=== PATIENT | male | born 1995 | race Caucasian/White ===

== ENCOUNTER 2017-01-08 19:05 | Emergency (ER) | payer OTHER ==
[~2017-01-08] VITALS: Ht 177.8 cm; Wt 59.9 kg
[~2017-01-08 19:05] MED LIST: OXCA300T PO
[2017-01-08 19:16] VITALS: TEMP 36.7; Ht 177.8 cm; Wt 59.9 kg
[2017-01-08] MEDS ORDERED: GELATIN SPONGE 12-7MM EXT ONE (19:30)
[2017-01-08] MEDS ORDERED: LACO200T PO (19:35)
[2017-01-08] MEDS ORDERED: OXCA600T3 PO (19:35)
[2017-01-08] MEDS ORDERED: OXCA300T4 PO (19:35)
--- NOTE | 2017-01-08 20:00 | EMERGENCY ROOM VISIT NOTE ---
ED Visit Note First contact with patient: 19:28 CHIEF COMPLAINT: Finger laceration HISTORY OF PRESENT ILLNESS: This 21-year-old male patient presents to the emergency department with his brother after cutting the tip of his left second finger. Patient states he was peeling potatoes when he sliced the end of his finger about one hour ago. The bleeding has not stopped. Denies weakness or numbness of the finger. The patient rates the pain as throbbing and 3/10. The patient denies any other injuries. The patient's Tetanus shot is up to date. He is right-hand dominant. REVIEW OF SYSTEMS: A 6 system review of systems was completed with positives and pertinent negatives listed in the HPI. ALLERGIES: See chart MEDICATIONS: See chart PMH: See chart SOCIAL HISTORY: See chart PHYSICAL EXAM: Vital Signs: Reviewed Nurse's notes, vital signs stable. GENERAL : Pleasant and cooperative, in no acute distress, well-developed, well- nourished. SKIN: There is a 1.5 x 0.5 cm long avulsion laceration on the volar aspect of the left second fingertip. There is no foreign material in the wound and it looks clean. There is moderate bleeding. No deep structures such as tendons, bones, or significant blood vessels are seen in the base of the wound. Normal strength and movement of the fingertip. Capillary refill less than 2 seconds. Normal sensation to light and sharp touch. EMERGENCY DEPARTMENT COURSE: I examined the patient. Verbal consent was obtained to perform the procedure. A finger tourniquet was applied to the left second finger. Using sterile technique the wound was cleansed with Betadine. The area was sterilely draped. The wound was copiously irrigated under pressure with sterile saline. The wound was explored and was as described above. A piece of gelfoam was applied to the avulsion, and an occlusive dressing was applied. The patient tolerated the procedure well. The finger tourniquet was on for approximately 15 minutes, after being removed hemostasis was achieved. The patient was instructed on wound care. The patient was discharged home in good condition. Problem List Medical Problems: (1) Seizures Status: Resolved Current/Historical Medications Scheduled Lacosamide (Vimpat), 200 MG PO BID Oxcarbazepine (Trileptal), 300 MG PO BID Oxcarbazepine (Trileptal), 600 MG PO BID Allergies Coded Allergies: No Known Allergies (Unverified , 01/08/17) Vital Signs Date Time Temp Pulse Resp B/P (MAP) Pulse Ox O2 Delivery O2 Flow Rate FiO2 01/08/17 20:15 101 18 128/81 97 01/08/17 19:16 36.7 122 18 133/87 95 Room Air Departure Information Impression Primary Impression: Avulsion of skin of finger without complication Dispostion Home / Self-Care Condition GOOD Referrals [facility] (PCP) Patient Instructions ED Avulsion Dermal, [facility] Additional Instructions You have been treated in the Emergency Department today for your finger Avulsion. Leave the GELFOAM and dressing in place for the next 48 hours. Keep the dressing clean and dry until time for removal. To remove the GELFOAM dressing, remove the overlying tape and then soak the wound in warm water until the piece of GELFOAM can be easily removed. Proper wound care is essential for adequate wound healing and infection prevention. You can shower and clean the wound with soap and water. Do not scour over the wound, pat dry with a towel. You can use an antibiotic ointment with a dressing/bandage over the wound for the next 3-4 days. After this time you may leave the wound dry and open to the air. Look for signs of infection of the wound including: increased pain, swelling, foul discharge, streaking, or increased temperature. If any of these are noticed you should return to the Emergency Department for further assessment and treatment. As with any laceration you may have received nerve damage to the surrounding tissues. This damage could be permanent. For pain control, you can use the following [id number] medicines (if >12 yo): - Regular strength (325mg/tab) Tylenol (acetaminophen) 2 tabs every 4-6 hours as needed. Do not exceed 10 tablets in a 24 hour period. Avoid taking more than 3 grams (3000 mg) of Tylenol per day. This includes any other sources of acetaminophen you may take on a regular basis. - Regular strength (200 mg/tab) Advil (ibuprofen) 1-2 tabs every 4-6 hours as needed. Do not exceed a dose of 3200 mg per day. Return to the emergency department if your symptoms worsen despite treatment course outlined above, or for any signs of infection, including increasing pain , swelling, redness, pus drainage, streaking up your hand, or fevers/chills.. Problem Qualifiers Primary Impression: Avulsion of skin of finger without complication Encounter type: initial encounter Qualified Codes: S61.209A - Unspecified open wound of unspecified finger without damage to nail, initial encounter
[2017-01-08 20:15] VITALS: BP 128/81; PULSE 101; O2SAT 97
== END 2017-01-08 20:17 | disposition home or self-care (01) ==
LOC: C.EDB 19:06 → C.EDD 20:17
DX: S61.211A Laceration without foreign body of left index finger without damage to nail, initial encounter (principal); W45.8XXA Other foreign body or object entering through skin, initial encounter; G40.909 Epilepsy, unspecified, not intractable, without status epilepticus; Z79.899 Other long term (current) drug therapy